=== PATIENT | female | born 1995 | race Caucasian/White ===

== ENCOUNTER 2017-01-07 16:32 | Emergency (ER) | payer MEDICAID ==
--- NOTE | 2017-01-07 17:01 | Emergency Department Record ---
History of Present Illness - General Chief complaint: Female Urogenital Problem Stated complaint: LOWER ABD PAIN Time Seen by Provider: 01/07/17 16:58 Source: Patient Mode of Arrival: Ambulatory - History of Present Illness Initial comments: The patient is here due to a 3 day hx of pelvic cramping off and on. The cramping is presently gone now. She denies any dysuria, vaginal bleeding, nausea , vomiting, or diarrhea. She has had a mild discharge for a couple of days. The patient did take multiple home tests in the last 24 hours that were faintly positive. MD Complaint: Pelvic pain Onset/Timin -: Days(s) Location: Suprapubic Severity: Moderate Severity scale (1-10): 5 Quality: Aching, Cramping Consistency: Intermittent Improves with: None Worsens with: None Associated Symptoms: Denies other symptoms - Related Data Previous Rx's Medication Instructions Recorded Naproxen [Naprosyn] 250 mg PO BID #14 tablet 01/07/17 Allergies Allergy/AdvReac Type Severity Reaction Status Date / Time No Known Drug Allergies Allergy Verified 01/07/17 16:44 Travel Screening - Travel/Exposure Within Last 30 Days Have you traveled within the last 30 days?: No - Travel/Exposure Within Last Year Have you traveled outside the [place] in the last year?: No - Additonal Travel Details Have you been exposed to anyone with a communicable illness?: No - Travel Symptoms Symptom Screening: None Review of Systems Constitutional: Denies: Chills, Fever Eyes: Denies: Eye discharge ENT: Denies: Congestion Respiratory: Denies: Cough, Dyspnea Past Medical History - SOCIAL HISTORY Smoking Status: Current every day smoker Alcohol Use: Occassional Drug Use: None - RESPIRATORY Hx Respiratory Disorders: No - CARDIOVASCULAR Hx Cardio Disorders: No - NEURO Hx Neuro Disorders: No - GI Hx GI Disorders: No - Hx Genitourinary Disorders: No - ENDOCRINE Hx Endocrine Disorders: No - MUSCULOSKELETAL Hx Musculoskeletal Disorders: No - PSYCH Hx Psych Problems: No - HEMATOLOGY/ONCOLOGY Hx Hematology/Oncology Disorders: No Family Medical History Any Significant Family History?: No Physical Exam - General General Appearance: Alert, Oriented x3, Cooperative, No acute distress - Head Head exam: Atraumatic, Normocephalic, Normal inspection - Eye Eye exam: Normal appearance, PERRL - Neck Neck exam: Normal inspection, Full ROM. negative: Tenderness - Respiratory Respiratory exam: Normal lung sounds bilaterally. negative: Respiratory distress - Cardiovascular Cardiovascular Exam: Regular rate, Normal rhythm, Normal heart sounds - GI/Abdominal GI/Abdominal exam: Soft, Normal bowel sounds. negative: Rigid, Tenderness - exam: Cervical discharge (mild.), Normal bimanual exam, Normal external exam , Vaginal discharge. negative: Abnormal external exam, Adnexal mass (L), Adnexal mass (R), Adnexal tenderness (L), Adnexal tenderness (R), cervical motion tenderness, Enlarged uterus, Normal speculum exam, Vaginal bleeding, Vaginal erythema - Extremities Extremities exam: Normal inspection, Full ROM, Normal capillary refill. negative: Tenderness Course Vital Signs 01/07/17 16:58 Temperature 98.7 F Pulse Rate 117 H Respiratory 18 Rate Blood Pressure 108/71 Pulse Ox 97 - Reevaluation(s) Reevaluation #1: The patient is resting comfortably with no pain or discomfort. 01/07/17 17:45 Reevaluation #2: The patient is doing very well at this time. She denies any pain, nausea or vomiting and on exam her abdomen is very soft and nontender. I explained the lab tests to her and the neg HCG's. She is to see her PCP if not better and return to the ER if worse. 01/07/17 18:30 Medical Decision Making - Lab Data Result diagrams: 01/07/17 17:40 01/07/17 17:40 Disposition Disposition: Discharge Clinical Impression: Pelvic cramping Disposition: Home, Self-Care Condition: (1) Good Instructions: Pelvic Pain in Women (ED) Additional Instructions: Please take the naprosyn for pain. Please see your PCP if not better in 3 days and return to the ER for any increased pain, fever, or vomiting. Prescriptions: Naproxen [Naprosyn] 250 mg PO BID #14 tablet Forms: Patient Portal Access Time of Disposition: 18:29
[2017-01-07 17:10] LABS: URINE APPEARANCE CLEAR; URINE BILIRUBIN NEGATIVE (NEGATIVE); URINE BLOOD NEGATIVE (NEGATIVE); URINE COLOR YELLOW; URINE GLUCOSE (UA) NEGATIVE (NEGATIVE); URINE KETONE NEGATIVE (NEGATIVE); URINE LEUKOCYTE ESTERASE NEGATIVE (NEGATIVE); URINE NITRITE NEGATIVE (NEGATIVE); URINE PROTEIN NEGATIVE (NEGATIVE); URINE UROBILINOGEN 0.2 E.U./dL (0.20 - 1.00)
[2017-01-07 17:14] LABS: HCG,QUALITATIVE URINE NEGATIVE (NEGATIVE)
[2017-01-07 17:47] LABS: BASO % 0.2 % (0-6); EOS % 0.4 % (0-6); GRAN % 67.9 % (47-80); MEAN CELL VOLUME 90.5 fl (81-97); MEAN CORPUSCULAR HEMOGLOBIN 29.4 pg (27-33); MEAN CORPUSCULAR HGB CONC 32.5 g/dl (32-36); MEAN PLATELET VOLUME 9.9 fl (7.4-10.4); MONO % 9.5 % (0-9); PLATELET COUNT 293 K/uL (130-400); RED BLOOD COUNT 4.42 M/uL (3.80-5.40); RED CELL DISTRIBUTION WIDTH 12.7 % (11.5-14.5); WHITE BLOOD COUNT W/O DIFF 10.9 K/uL (4.2-12.2)
[2017-01-07 17:59] LABS: ANION GAP 11.9 (7-16); BLOOD UREA NITROGEN 6 mg/dL (7-17); CARBON DIOXIDE 26.1 mmol/L (22-30); CREATININE 0.6 mg/dL (0.52-1.04); EST GLOMERULAR FILTRATION RATE > 60 ml/min; GLUCOSE,RANDOM 90 mg/dL (70-110)
[2017-01-07] MEDS: IBUPROFEN 600 MG TABLET PO ONE (18:07)
== END 2017-01-07 18:43 | disposition home or self-care (01) ==
LOC: ER 16:32
DX: R10.2 Pelvic and perineal pain (principal)
CPT/HCPCS: 99284 ×2; 85025; 80048; 81003; 84703; 81025; Q0111; 87210

== ENCOUNTER 2017-04-20 16:47 | Emergency (ER) | payer MEDICAID ==
--- NOTE | 2017-04-20 18:12 | Emergency Department Record ---
History of Present Illness - General Stated Complaint: 6/8 WKS PG AND CRAMPING Time Seen by Provider: 04/20/17 18:07 Source: Patient Mode of Arrival: Ambulatory Limitations: No limitations - History of Present Illness Initial Comments: 21 female presents with a CC of 2 days of lower abdominal/pelvic cramping, reports that she is approximately 6-8 weeks . Patient denies urinary symptoms but does report mild itching to the vaginal area. Patient denies vomiting or change in stools, and denies fevers, chills, or recent illness. Patient denies health problems at her baseline. MD Complaint: Abdominal pain Onset/Timin -: Days(s) Location: Suprapubic, LLQ, RLQ Radiation: None Migration to: No migration Severity: Moderate Quality: Cramping Consistency: Intermittent Improves With: Nothing Worsens With: Nothing Associated Symptoms: Denies other symptoms - Related Data Patient : Yes Home Medications Medication Instructions Recorded Confirmed Last Taken Pnv No.95/Ferrous Fum/Folic AC 1 tab PO DAILY 04/20/17 04/20/17 04/20/17 [ Multivitamin Tablet] Allergies Allergy/AdvReac Type Severity Reaction Status Date / Time No Known Drug Allergies Allergy Verified 04/20/17 18:12 Review of Systems Constitutional: Denies: Chills, Fever, Malaise, Night sweats Eyes: Denies: Eye discharge, Eye pain ENT: Denies: Congestion, Ear pain, Epistaxis Respiratory: Denies: Cough, Dyspnea Cardiovascular: Denies: Chest pain, Dyspnea on exertion Endocrine: Denies: Fatigue, Heat or cold intolerance Gastrointestinal: Reports: Abdominal pain. Denies: Nausea, Vomiting Genitourinary: Denies: Incontinence, Retention Musculoskeletal: Denies: Arthralgia, Back pain, Gout, Joint swelling Skin: Denies: Bruising, Change in color Neurological: Denies: Abnormal gait, Confusion, Headache Psychiatric: Denies: Anxiety Hematological/Lymphatic: Denies: Anemia, Blood Clots Past Medical History - SOCIAL HISTORY Smoking Status: Current every day smoker Drug Use: None - RESPIRATORY Hx Respiratory Disorders: No - CARDIOVASCULAR Hx Cardio Disorders: No - NEURO Hx Neuro Disorders: No - GI Hx GI Disorders: No - Hx Genitourinary Disorders: No - ENDOCRINE Hx Endocrine Disorders: No - MUSCULOSKELETAL Hx Musculoskeletal Disorders: No - PSYCH Hx Psych Problems: No - HEMATOLOGY/ONCOLOGY Hx Hematology/Oncology Disorders: No Physical Exam - General General Appearance: Alert, Oriented x3, Cooperative, No acute distress, Other ( smiling, well apparing on examination) Limitations: No limitations - Head Head exam: Atraumatic, Normocephalic, Normal inspection Head exam detail: negative: Abrasion, Contusion, Montilla's sign, General tenderness, Hematoma, Laceration - Eye Eye exam: Normal appearance. negative: Conjunctival injection, Periorbital swelling, Periorbital tenderness - ENT Ear exam: negative: Auricular hematoma, Auricular trauma Nasal Exam: negative: Active bleeding, Discharge, Dried blood, Foreign body Mouth exam: negative: Drooling, Laceration, Muffled voice, Tongue elevation - Neck Neck exam: Normal inspection. negative: Meningismus, Tenderness - Respiratory Respiratory exam: Normal lung sounds bilaterally. negative: Respiratory distress, Rhonchi, Stridor, Wheezes - Cardiovascular Cardiovascular Exam: Regular rate, Normal rhythm, Normal heart sounds - GI/Abdominal GI/Abdominal exam: Soft, Tenderness (mild TTP to the suprapubic, LLQ, and RLQs on examination, no rebound or guarding are present). negative: Pulsatile mass, Rebound, Rigid - Rectal Rectal exam: Deferred - exam: Deferred - Extremities Extremities exam: Normal inspection. negative: Calf tenderness, Pedal edema, Tenderness - Back Back exam: Denies: CVA tenderness (R), CVA tenderness (L) - Neurological Neurological exam: Alert, Normal gait, Oriented X3 - Psychiatric Psychiatric exam: Normal affect, Normal mood - Skin Skin exam: Normal color. negative: Abrasion Type of lesion: negative: abrasion Course - Reevaluation(s) Reevaluation #1: 04/20/17 19:06 Labs reviewed, [facility], WBC 13.0. Labs are otherwise grossly unremarkable for an acute process. Reevaluation #2: 04/20/17 19:41 US Pelvis: Intrauterine gestational sac present, no pole present. Estimated 5 weeks gestation. Right corpus luteum cyst. Patient was updated on all results, and appears stable for discharge at this time with instructions to follow-up with her OB for 48 hour BHCG (Rx given, results to Dr. Nuñez) for continued gestational evaluation. Patient appears stable for discharge at this time and all questions were answered at the time of discharge. 04/20/17 19:49 Medical Decision Making - Lab Data Result diagrams: 04/20/17 18:16 04/20/17 18:16 Disposition Disposition: Discharge Clinical Impression: Abdominal pain affecting Disposition: Home, Self-Care Condition: (2) Stable Instructions: Abdominal Pain in (ED) Additional Instructions: Return to ED if your symptoms worsen or if you have any concerns. Repeat BHCG in 48 hours. Follow-up with doctor Nuñez in 3-5 days as directed. Forms: Patient Portal Access Time of Disposition: 19:44 Quality - Quality Measures Quality Measures: N/A - Blood Pressure Screening Blood Pressure Classification: Pre-Hypertensive BP Reading Systolic Measurement: 114 Diastolic Measurement: 80 Screening for High Blood Pressure: < Pre-Hypertensive BP, F/U Documented > [ [id number]] Pre-Hypertensive Follow-up Interventions: Referral to alternative/primary care provider.
[2017-04-20 18:26] LABS: BASO % 0.2 % (0-6); EOS % 0.6 % (0-6); GRAN % 75.3 % (47-80); HEMOGLOBIN 12.1 gm/dl (11.6-16.0); LYMPH % 15.3 % (16-45); MEAN CELL VOLUME 87.6 fl (81-97); MEAN CORPUSCULAR HEMOGLOBIN 29.4 pg (27-33); MEAN CORPUSCULAR HGB CONC 33.6 g/dl (32-36); MEAN PLATELET VOLUME 9.6 fl (7.4-10.4); MONO % 8.6 % (0-9); PLATELET COUNT 282 K/uL (130-400); RED BLOOD COUNT 4.11 M/uL (3.80-5.40); RED CELL DISTRIBUTION WIDTH 12.3 % (11.5-14.5)
[2017-04-20 18:30] LABS: URINE APPEARANCE CLEAR; URINE BILIRUBIN NEGATIVE (NEGATIVE); URINE BLOOD NEGATIVE (NEGATIVE); URINE COLOR STRAW; URINE GLUCOSE (UA) NEGATIVE (NEGATIVE); URINE KETONE NEGATIVE (NEGATIVE); URINE LEUKOCYTE ESTERASE NEGATIVE (NEGATIVE); URINE NITRITE NEGATIVE (NEGATIVE); URINE PROTEIN NEGATIVE (NEGATIVE); URINE UROBILINOGEN 0.2 E.U./dL (0.20 - 1.00)
[2017-04-20 18:39] LABS: ALB/GLOB RATIO 1.5 (1.1-1.8); ALBUMIN 4.3 gm/dL (3.5-5.0); ALKALINE PHOSPHATASE 50 U/L (38-126); ALT/SGPT 42 U/L (9-52); ANION GAP 10.4 (7-16); AST/SGOT 19 U/L (14-36); BILIRUBIN,TOTAL 0.63 mg/dL (0.2-1.3); BLOOD UREA NITROGEN 7 mg/dL (7-17); CARBON DIOXIDE 25.6 mmol/L (22-30); CREATININE 0.6 mg/dL (0.52-1.04); EST GLOMERULAR FILTRATION RATE > 60 ml/min; GLUCOSE,RANDOM 101 mg/dL (70-110); LIPASE 73 U/L (23-300); TOTAL PROTEIN 7.1 gm/dL (6.3-8.2)
--- NOTE | 2017-04-21 14:29 | ULTRASOUND REPORT ---
EXAM: FIRST TRIMESTER PELVIC ULTRASOUND HISTORY: SPOTTING, LMP 04/05/17. TECHNIQUE: Real-time kelly scale sonographic imaging of the pelvis was performed. Transabdominal images were obtained for global evaluation. Transvaginal images were obtained for better evaluation of the adnexa. Comparison: None. FINDINGS: The uterus is not enlarged. The myometrium is homogeneous. Tiny 5 mm cystic structure within the endometrium. The endometrial echo complex is not well seen due to poor penetration. The left ovary appears normal measuring 3.3 x 2.8 x 1.6 cm. The right ovary appears normal measuring 3.3 x 3.6 x 2.1 cm. Transvaginal images demonstrate small anechoic collection within the endometrial cavity of the uterus presumably due to a gestational sac. Normal yolk sac, but no pole. The gestational sac measures 8 x 8 x 3 mm. The amniotic fluid is adequate. The placenta is not seen due to early . Hypoechoic focus within the right ovary with no color flow measuring 2.2 cm likely due to corpus luteal cyst. The left ovary is unremarkable. No free pelvic fluid or adnexal mass. IMPRESSION: 1. SOLITARY INTRAUTERINE GESTATIONAL SAC WITH ESTIMATED GESTATIONAL AGE OF APPROXIMATELY 5 WEEKS. NORMAL YOLK SAC. NO PERIGESTATIONAL HEMORRHAGE. 2. NORMAL LEFT OVARY. 3. SMALL PROBABLE CORPUS LUTEAL CYST RIGHT OVARY. JOB NUMBER: [id number] [facility]
== END 2017-04-20 19:52 | disposition home or self-care (01) ==
LOC: ER 16:47
DX: O26.891 Other specified pregnancy related conditions, first trimester (principal); R10.84 Generalized abdominal pain; Z3A.01 Less than 8 weeks gestation of pregnancy
CPT/HCPCS: 76830; 80053; 81003; 83690; 84702; 85025; 99283; 99284